=== PATIENT | male | born 1990 | race Caucasian/White ===

== ENCOUNTER → 2023-12-19 10:40 | Outpatient (REF) | payer BC, SELFPAY | LOC: HWRAD 10:40 | PROVIDERS: ATTENDING PHYSICIAN Otolaryngology Facial Plastic Surgery; FAMILY PHYSICIAN Family Medicine | DX: D34 Benign neoplasm of thyroid gland (principal); R13.12 Dysphagia, oropharyngeal phase; J34.2 Deviated nasal septum | CPT/HCPCS: 70498; Q9967 ==

== ENCOUNTER 2024-05-22 11:33 | Emergency (ER) | payer BC, SELFPAY ==
[2024-05-22 11:34] VITALS: BP 159/99
--- NOTE | 2024-05-22 11:47 | ED.SKININJ ---
HPI-Injury
General
Chief Complaint: Skin Surface Trauma
Source: patient
Exam Limitations: none
Nursing documentation reviewed up to this point in time: agreed with
History of Present Illness-Injury
Initial Injury comments:
34 yo male states his dog was barking at the mailman, was all excited as mailman came closer pt was holding dog's collar and it turned and bit his left hand. Dog is UTD w immunizations.
Past History
Past History
ED Past Medical History: None
ED Past Surgical History: Orthopedic
Social History
Tobacco: Non-smoker
Alcohol: Occasional
Drug: None
Personal: Single
Living: with family
Employment: Employed
Review of Systems
Review of Systems
Allergies reviewed?: Yes
All Other Systems: ROS reviewed and negative except as documented in HPI and ROS
Skin: Reports other (two small lacerations left hand from dog bite)
Neurological: Denies weakness or numbness
Skin Exam
Bite
Dorsum left hand base ring finger:
Type: animal
Skin has: full thickness laceration
Description of insect bites: 0.6 cm laceration
Surrounding area around bite has: no evidence of erythema
Distal skin color and temperature: normal-warm & good color
Normal distal neurovascular exam: Yes
Left hand dorsum mid 2nd metacarpal:
Type: animal
Description of insect bites: 0.6 laceration from dog bite
Surrounding area around bite has: no evidence of erythema
Distal skin color and temperature: normal-warm & good color
Normal distal neurovascular exam: Yes
Phy Exam
Physical Exam
Physical Exam:
PHYSICAL EXAMINATION:
General: no apparent distress, not acutely ill
Neuro: alert and oriented.
Psychiatric: well kept. interactive and cooperative
Musculoskeletal: Moves with ease, full ROM of left hand/fingers. distal n/v intact
Skin: Warm, pink.
Course
Orders/Labs/Results
Orders:
Orders
05/22/24 11:59
Tetanus/Diphth/Acelpertussis [Adacel] 0.5 ml IM .ONCE ONE
Vital Signs
Initial and Last Documented VS:
Initial Vital Signs
Temp Pulse Resp BP Pulse Ox
97.8 F 70 18 159/99 100
05/22/24 11:34 05/22/24 11:34 05/22/24 11:34 05/22/24 11:34 05/22/24 11:34
Last Documented Vital Signs
Temp Pulse Resp BP Pulse Ox
97.8 F 70 18 159/99 100
05/22/24 11:34 05/22/24 11:34 05/22/24 11:34 05/22/24 11:34 05/22/24 11:34
Procedures
Laceration Closure
base left ring finger:
Status of Wound: clean
Size of Wound in cm: 0.6
Description of Wound Edges: sharp
Preparation: cleaned with Betadine
Revision/Debridement: routine- no revision
Wound exploration: no tendon involvement
Type of Closure: single layer closure
Skin Closure Material: 5-0 nylon
Number of sutures: 1
dorsum left hand :
Status of Wound: clean
Size of Wound in cm: 0.6
Description of Wound Edges: sharp
Preparation: cleaned with Betadine
Anesthesia: other (No anesthesia)
Revision/Debridement: routine- no revision
Wound exploration: no tendon involvement
Type of Closure: single layer closure
Skin Closure Material: 5-0 nylon
Number of sutures: 1
MDM/Problems Addressed
MDM/Problems Addressed:
34 yo male states his dog was barking at the [employer], was all excited as [employer] came closer pt was holding dog's collar and it turned and bit his left hand. Dog is UTD w immunizations.
No bony tenderness, full ROM of fingers, wrist no suspicion of fx, wounds visible to base, no FB, no indication for imaging
Wounds soaked in Betadine solution.
One midline suture in each laceration to bring edges mildly together, sterile gauze and mani wrap applied
Rx for Augmentin sent to pt pharmacy
*Critical Care Note
Total Time (30-74mins, 75-104mins- exclusive of procedures): Not Applicable
ED Attending Note
-
Portions of this chart may have been created with voice recognition software.� Occasional wrong word or��sound alike� substitutions may have occurred due to the inherent limitations of voice recognition software.
Discharge Plan
Departure
Patient Disposition: Home (Routine Discharge)
Date of Disposition: 05/22/24
Time of Disposition: 12:10
Patient with high blood pressure during this ER visit?: No
Condition: Good
Discharge Problem:
Dog bite of dorsum of hand
Instructions: Laceration Repair With Stitches (DC), Animal Bites ED
Prescriptions:
New
amoxicillin-pot clavulanate 875-125 mg tablet
1 tab PO BID Qty: 14 0RF
Activity Restrictions/Additional Instructions:
As we discussed, wash the areas daily with soap and water.
Seek medical care immediately for signs of infection which may include increasing pain, swelling, redness, pus drainage or red streak up the arm or fever.
I sent a prescription for antibiotic Augmentin to your pharmacy to take twice a day for 7 days
Have the sutures removed in 10 to 12 days.
Interventions
Interventions:
*Risk Screen - Suicide Last Done: 05/22/24 11:34
*General Assessment Last Done: 05/22/24 11:34
*Neglect/Abuse Screening Last Done: 05/22/24 11:34
*Nursing Disposition Last Done: 05/22/24 12:19
ED-Skin Assessment Last Done: 05/22/24 11:51
Discharge Date and Time
Discharge Date/Time: 05/22/24 12:19
Print Language: PRYDEINIG
[2024-05-22 11:52] VITALS: BMI 40.7
[2024-05-22] MEDS: ADACEL 0.5 ML IM (12:15)
== END 2024-05-22 12:19 | disposition home or self-care (01) ==
LOC: EMR 11:33
PROVIDERS: EMERGENCY PHYSICIAN Student in an Organized Health Care Education/Training Program; FAMILY PHYSICIAN Family Medicine
DX: S61.452A Open bite of left hand, initial encounter (principal); W54.0XXA Bitten by dog, initial encounter; Z23 Encounter for immunization
CPT/HCPCS: 99282; 12001; 90471; 90715